=== PATIENT | male | born 1945 | race Caucasian/White ===

== ENCOUNTER → 2019-04-15 | Outpatient (CLI) | payer MEDICARE ==
[2015-01-09 15:55] VITALS: BMI 24.4
[~2019-04-15] MED LIST: ACE325 PO; ASPI-1471 PO; ASPI-715 PO; AUG875 PO; BETABLOCKER; CA C1TAB85 PO; CHL25 PO; DOC100 PO; ENOX80DI8 SQ; FLU100 PO; FLUT16SP20 NS; FOL1 PO; FOLI-68 PO; LISI-1 PO; LISI-368 PO; LOM PO; LOR5 PO; MAGN400T37 PO; MOM PO; Metoprolol ER PO; NICO-180 TD; NO ROUTINE MEDS; OND4 PO; PAN40 PO; PANT40TA65 PO; QUE100 PO; QUET50TA21 PO; RIVA20TA PO; SPIR25TA80 PO; THIA100T20 PO; THIA100T55 PO; WAR1 PO; [UNRECOGNIZED DRUG - CODE] PO
--- NOTE | 2019-04-15 13:52 | RADIOLOGY IMAGING REPORT ---
FACILITY: [facility] [place] PATIENT NAME: Shiva Kimball : 1945 MR: [id number] V: [id number] EXAM DATE: ORDERING PHYSICIAN: XIOMARA GOMEZ TECHNOLOGIST: Location: [facility] Patient: Shiva Kimball : 1945 Visit/Account:[id number] Date of Sevice: 04/15/2019 Exam type: CHEST PA LAT History: Cough Comparison: November 24, 2016. Findings: The lungs are free of acute effusions, infiltrates or edema.. A small amount of pleural thickening i n the left lung base. The cardiac silhouette is normal in size. A laboratory monitor projects over the left chest wall. There are spondylotic changes of the thoracic spine. IMPRESSION: 1. Small amount of pleural thickening in the left lung base Report Dictated By: Shahida Morales MD at 04/15/2019 1:43 PM Report E-Signed By: Shahida Morales MD at 04/15/2019 1:46 PM WSN:[id number]
== END ==
LOC: RAD 12:19
PROVIDERS: ATTEND Family Medicine
DX: R05 Cough (principal)
CPT/HCPCS: 71046